=== PATIENT | male | born 1995 | race Caucasian/White ===

== ENCOUNTER 2017-09-13 07:46 | Emergency (ER) | payer SELFPAY ==
[2017-09-13] MEDS ORDERED: diphenhydrAMINE 25 MG CAP ONE (08:05)
[2017-09-13] MEDS ORDERED: predniSONE 20 MG TAB ONE (08:05)
== END 2017-09-13 08:10 | disposition home or self-care (01) ==
LOC: MADERS 07:46
DX: H10.9 Unspecified conjunctivitis (principal)
CPT/HCPCS: 99283; J7506